=== PATIENT | male | born 1990 | race Caucasian/White ===

== ENCOUNTER 2020-12-23 22:24 | Emergency (ER) | payer BC ==
[2020-12-23] MEDS ORDERED: Ondansetron 4 MG/2 ML SDV IVPUSH ONE (23:07)
[2020-12-23] MEDS ORDERED: Sodium Chloride 0.9% 10 ML Syringe FLUSH PRN (23:07)
[2020-12-23] MEDS ORDERED: Sodium Chloride 0.9% 1,000 ML IV SCH (23:15)
--- NOTE | 2020-12-23 23:44 | EDM.PDOC ---
ED HPI GENERAL MEDICAL PROBLEM - General Chief Complaint: Cardiovascular Problem Stated Complaint: [facility] Time Seen by Provider: 12/23/20 22:37 Source of Information: Reports: Patient, RN Notes Reviewed - History of Present Illness INITIAL COMMENTS - FREE TEXT/NARRATIVE: 30 yr old male had onset of palpitations at rest a short time ago. Has felt mild Mckee, dizzy, with some nausea for the last day or 2. No vomiting, diarrhea, fever, chills, cough or difficulty breathing. with the palpitations he became "nervous", called EMS. Heart rate about 115 to 120 on arrival to ED. NSR. - Related Data Allergies Allergy/AdvReac Type Severity Reaction Status Date / Time No Known Allergies Allergy Verified 12/23/20 22:26 Home Meds: Home Meds . [No Known Home Meds] 12/23/20 [History] Past Medical History - Past Health History Medical/Surgical History: Denies Medical/Surgical History Social & Family History - Tobacco Use Tobacco Use Status *Q: Current Every Day Tobacco User Years of Tobacco use: 10 Packs/Tins Daily: 0.5 - Recreational Drug Use Recreational Drug Use: Yes Drug Use in Last 12 Months: Yes Recreational Drug Type: Reports: Marijuana/Hashish Recreational Drug Use Frequency: Weekly ED ROS GENERAL - Review of Systems Review Of Systems: See Below Constitutional: Denies: Fever, Chills, Diaphoresis HEENT: Reports: No Symptoms Respiratory: Denies: Shortness of Breath, Wheezing, Pleuritic Chest Pain, Cough Cardiovascular: Reports: Lightheadedness, Palpitations GI/Abdominal: Reports: Nausea. Denies: Abdominal Pain, Diarrhea, Vomiting Musculoskeletal: Denies: Shoulder Pain, Arm Pain, Back Pain Skin: Reports: No Symptoms Neurological: Reports: Dizziness ED EXAM, GENERAL - Physical Exam Exam: See Below General Appearance: Alert, No Apparent Distress Eye Exam: Bilateral Eye: PERRL Throat/Mouth: Normal Inspection Neck: Supple Respiratory/Chest: No Respiratory Distress, Lungs Clear, Normal Breath Sounds Cardiovascular: Tachycardia GI/Abdominal: Soft, Non-Tender. No: Guarding Back Exam: No: CVA Tenderness (L), CVA Tenderness (R) Extremities: Normal Inspection, Normal Range of Motion. No: Pedal Edema, Leg Pain Neurological: Alert, Oriented, No Motor/Sensory Deficits Skin Exam: Warm, Dry, Normal Color, No Rash #1 Interpretation EKG Date: 12/23/20 Rhythm: NSR Sherrill: Normal P-Wave: Present QRS: Normal ST-T: Other (mild st elevation, probable nl early repol.) Course - Vital Signs Last Recorded V/S: Last Vital Signs Temp 98.0 F 12/23/20 22:27 Pulse 115 H 12/23/20 22:27 Resp 12 12/23/20 22:27 BP 141/89 H 12/23/20 22:27 Pulse Ox 100 12/23/20 22:27 - Orders/Labs/Meds Orders: Active Orders 24 hr Category Date Time Status EKG 12 Lead [EKG Documentation Completion] [] STAT Care 12/23/20 22:32 Active Peripheral IV Care [] . DIRECTED Care 12/23/20 23:07 Active Sodium Chloride 0.9% [Normal Saline] 1,000 ml Med 12/23/20 23:15 Active IV ONETIME Sodium Chloride 0.9% [Saline Flush] Med 12/23/20 23:07 Active 10 ml FLUSH ASDIRECTED PRN Peripheral IV Insertion Adult [OM.PC] Stat Oth 12/23/20 23:07 Ordered Medication Orders Sodium Chloride (Normal Saline) 1,000 mls @ 999 mls/hr IV ONETIME [facility] Last Admin: 12/23/20 23:33 Dose: 999 mls/hr Documented by: EARLE Sodium Chloride (Sodium Chloride 0.9% 10 Ml Syringe) 10 ml FLUSH ASDIRECTED PRN PRN Reason: Keep Vein Open Last Admin: 12/23/20 23:33 Dose: 10 ml Documented by: EARLE Labs: Laboratory Tests 12/23/20 12/23/20 12/23/20 Range/Units 23:30 23:30 23:30 WBC 9.36 H (4.23-9.07) K/mm3 RBC 4.57 L (4.63-6.08) M/mm3 Hgb 13.7 (13.7-17.5) gm/dl Hct 41.2 (40.1-51.0) % MCV 90.2 (79.0-92.2) fl MCH 30.0 (25.7-32.2) pg MCHC 33.3 (32.2-35.5) g/dl RDW Std Deviation 40.7 (35.1-43.9) fL Plt Count 257 (163-337) K/mm3 MPV 9.9 (9.4-12.3) fl Neut % (Auto) 71.6 H (34.0-67.9) % Lymph % (Auto) 17.7 L (21.8-53.1) % Gallia % (Auto) 9.9 (5.3-12.2) % Eos % (Auto) 0.6 L (0.8-7.0) Baso % (Auto) 0.1 (0.1-1.2) % Neut # (Auto) 6.69 H (1.78-5.38) K/mm3 Lymph # (Auto) 1.66 (1.32-3.57) K/mm3 Gallia # (Auto) 0.93 H (0.30-0.82) K/mm3 Eos # (Auto) 0.06 (0.04-0.54) K/mm3 Baso # (Auto) 0.01 (0.01-0.08) K/mm3 Sodium 140 (136-145) mEq/L Potassium 3.6 (3.5-5.1) mEq/L Chloride 103 (98-107) mEq/L Carbon Dioxide 28 (21-32) mEq/L Anion Gap 12.6 (5-15) BUN 18 (7-18) mg/dL Creatinine 1.2 (0.7-1.3) mg/dL Est Cr Clr Drug Dosing 108.56 mL/min Estimated GFR (MDRD) > 60 (>60) mL/min BUN/Creatinine Ratio 15.0 (14-18) Glucose 118 H (70-99) mg/dL Calcium 8.8 (8.5-10.1) mg/dL Total Bilirubin 0.6 (0.2-1.0) mg/dL AST 20 (15-37) U/L ALT 28 (16-63) U/L Alkaline Phosphatase 68 (46-116) U/L Total Protein 7.7 (6.4-8.2) g/dl Albumin 4.2 (3.4-5.0) g/dl Globulin 3.5 gm/dL Albumin/Globulin Ratio 1.2 (1-2) TSH 3rd Generation 3.303 (0.358-3.74) uIU/mL SARS-CoV-2 RNA (MAYA) (NEGATIVE) 12/23/20 Range/Units 23:50 WBC (4.23-9.07) K/mm3 RBC (4.63-6.08) M/mm3 Hgb (13.7-17.5) gm/dl Hct (40.1-51.0) % MCV (79.0-92.2) fl MCH (25.7-32.2) pg MCHC (32.2-35.5) g/dl RDW Std Deviation (35.1-43.9) fL Plt Count (163-337) K/mm3 MPV (9.4-12.3) fl Neut % (Auto) (34.0-67.9) % Lymph % (Auto) (21.8-53.1) % Gall[place] % (Auto) (5.3-12.2) % Eos % (Auto) (0.8-7.0) Baso % (Auto) (0.1-1.2) % Neut # (Auto) (1.78-5.38) K/mm3 Lymph # (Auto) (1.32-3.57) K/mm3 Gall[place] # (Auto) (0.30-0.82) K/mm3 Eos # (Auto) (0.04-0.54) K/mm3 Baso # (Auto) (0.01-0.08) K/mm3 Sodium (136-145) mEq/L Potassium (3.5-5.1) mEq/L Chloride (98-107) mEq/L Carbon Dioxide (21-32) mEq/L Anion Gap (5-15) BUN (7-18) mg/dL Creatinine (0.7-1.3) mg/dL Est Cr Clr Drug Dosing mL/min Estimated GFR (MDRD) (>60) mL/min BUN/Creatinine Ratio (14-18) Glucose (70-99) mg/dL Calcium (8.5-10.1) mg/dL Total Bilirubin (0.2-1.0) mg/dL AST (15-37) U/L ALT (16-63) U/L Alkaline Phosphatase (46-116) U/L Total Protein (6.4-8.2) g/dl Albumin (3.4-5.0) g/dl Globulin gm/dL Albumin/Globulin Ratio (1-2) TSH 3rd Generation (0.358-3.74) uIU/mL SARS-CoV-2 RNA (MAYA) Negative (NEGATIVE) Meds: Medications Generic Name Dose Route Start Last Admin Trade Name Freq PRN Reason Stop Dose Admin Sodium Chloride 1,000 mls @ 999 mls/hr 12/23/20 23:15 12/23/20 23:33 Normal Saline IV 999 mls/hr ONETIME [facility] Administration Sodium Chloride 10 ml 12/23/20 23:07 12/23/20 23:33 Sodium Chloride 0.9% 10 Ml Syringe FLUSH 10 ml ASDIRECTED PRN Administration Keep Vein Open Discontinued Medications Generic Name Dose Route Start Last Admin Trade Name Freq PRN Reason Stop Dose Admin Ondansetron HCl 4 mg 12/23/20 23:07 12/23/20 23:33 Ondansetron 4 Mg/2 Ml Sdv IVPUSH 12/23/20 23:08 4 mg ONETIME ONE Administration - Re-Assessments/Exams Free Text/Narrative Re-Assessment/Exam: 12/24/20 01:07 CBC, CMP nl, covid neg. EKG NSR, no acute changes Departure - Departure Time of Disposition: 01:01 Disposition: Home, Self-Care 01 Condition: Fair Clinical Impression: Palpitations, Dizziness Referrals: PCP,Not In Area [Primary Care Provider] - Forms: ED Department Discharge Sepsis Event Note (ED) - Evaluation Sepsis Screening Result: No Definite Risk - Focused Exam Vital Signs: Vital Signs Temp Pulse Resp BP Pulse Ox 12/23/20 22:27 98.0 F 115 H 12 141/89 H 100 - My Orders Last 24 Hours: My Active Orders 12/23/20 22:32 EKG 12 Lead [EKG Documentation Completion] [RC] STAT 12/23/20 23:07 Peripheral IV Care [RC] . DIRECTED Sodium Chloride 0.9% [Saline Flush] 10 ml FLUSH ASDIRECTED PRN Peripheral IV Insertion Adult [OM.PC] Stat 12/23/20 23:15 Sodium Chloride 0.9% [Normal Saline] 1,000 ml IV ONETIME - Assessment/Plan Last 24 Hours: My Active Orders 12/23/20 22:32 EKG 12 Lead [EKG Documentation Completion] [RC] STAT 12/23/20 23:07 Peripheral IV Care [RC] . DIRECTED Sodium Chloride 0.9% [Saline Flush] 10 ml FLUSH ASDIRECTED PRN Peripheral IV Insertion Adult [OM.PC] Stat 12/23/20 23:15 Sodium Chloride 0.9% [Normal Saline] 1,000 ml IV ONETIME
== END 2020-12-24 01:50 | disposition home or self-care (01) ==
LOC: JD.ED 22:24
DX: R00.2 Palpitations (principal); R42 Dizziness and giddiness; Z72.0 Tobacco use; Z20.822 Contact with and (suspected) exposure to COVID-19
CPT/HCPCS: 36415; 80053; 84443; 85025; 87635; 93005; 96374; 99285; J2405; J7030; 93010; 99284; U0002